=== PATIENT | female | born 1980 | race Caucasian/White ===

== ENCOUNTER 2016-05-07 16:50 | Emergency (ER) | payer OTHER ==
[~2016-05-07] VITALS: Ht 149.9 cm; Wt 58.1 kg
[2016-05-07 16:57] VITALS: BP 142/89; PULSE 97; RESP 16; TEMP 98.8; O2SAT 99
[2016-05-07] MEDS ORDERED: CLINDAMYCIN PHOS 600 MG/4 ML VIAL IM ONE (17:30)
[2016-05-07] MEDS ORDERED: BUPIVACAINE HCL PF 0.5% 10 ML VIAL INFIL ONE (17:30)
[2016-05-07] MEDS ORDERED: LIDOCAINE HCL 1% 50 ML VIAL INFIL ONE (17:30)
[2016-05-07] MEDS ORDERED: TETANUS/DIPHTHERIA TOXOID ADULT 0.5 ML VIAL IM ONE (18:00)
[2016-05-07] MEDS ORDERED: HYDR-3533 PO (18:51)
[2016-05-07] MEDS ORDERED: CLIN1CAP6 PO (18:51)
--- NOTE | 2016-05-07 18:51 | PD ---
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 She has 2 lacerations to the upper lip, through the vermilion border. This happened just prior to arrival. They did clean the wound some at the office. Describes copious bleeding that stopped with pressure. History Past Medical History Medical History: Denies Significant Hx Tetanus Vaccination: Unknown Social History Alcohol Use: No Tobacco Use: No Allergies-Medications (Allergen,Severity, Reaction): Coded Allergies: Penicillin (Verified Allergy, Severe, Anaphylaxis, 05/07/16) Reported Meds & Prescriptions Reported Meds & Active Scripts Active Lortab (Hydrocodone-Acetaminophen) 5-325 Mg Tab 1-2 Tab PO Q6H PRN Clindamycin (Clindamycin HCl) 300 Mg Cap 300 Mg PO Q6H 7 Days Review of Systems Except as stated in HPI: all other systems reviewed are Neg Physical Exam Narrative Gen.: Well-appearing 35-year-old woman, no acute distress HEENT: Patient has 2 lacerations to the upper lip and one to the lower chin. The 2 lacerations the upper lip parallel come on the right side of face. They' re both through the vermilion border. One is superficial, and his symptoms to his tissue, about 5-10 mm. The second one is about a centimeter and a half or so, goes all the way through the muscle of the lip and through the vermilion border. The one noted to chin is about a centimeters a half, and a small Y- shaped. No active bleeding. Data Data Last Documented VS Vital Signs Date Time Temp Pulse Resp B/P Pulse Ox O2 Delivery O2 Flow Rate FiO2 05/07/16 16:57 98.8 97 16 142/89 99 Orders Lidocaine 1% Inj (50 Ml) (Xylocaine 1% I (05/07/16 17:30) Bupivacaine Pf 0.5% Inj (Marcaine Pf 0.5 (05/07/16 17:30) Clindamycin Inj (Cleocin Inj) (05/07/16 17:30) Tetanus/Diphtheria Tox Adult (Tetanus/Di (05/07/16 18:00) [facility] Medical Decision Making Medical Screen Exam Complete: Yes Emergency Medical Condition: Yes Differential Diagnosis Facial laceration, infection, other Narrative Course Medical decision making This is a 35-year-old woman presents to the emergency department complaining of facial laceration. From a dog bite. Complex laceration through the musculature of the lip and through the vermilion border. No one is on-call for face. I did discuss with the plastic surgeon, Dr. Key, who is tied up in the operating room. Given this, I made decision to repair the laceration primarily at the bedside. Patient tolerated well. Procedures Procedure Narrative Infraorbital nerve block. Approximately 3 mL some accommodation of quarter percent Marcaine and 1% lidocaine were injected underneath the buccal fold angled toward the infraorbital foramen. Moderate but not perfect anesthesia resulted. Laceration repair: Complex laceration involving the upper right lip was repaired. Anesthesia was accomplished using an infraorbital nerve block. The vermilion border of both lacerations was tagged first. A buried 4-0 Vicryl was used to close the musculature of the lip. 6-0 Prolene was then used to scoliosis skin components all the lacerations, numbering approximately 10 sutures in total. 5-0 chromic gut was used to close the mucosal surface of the lacerations, 2 in total. Diagnosis Primary Impression: Dog bite of face Qualified Code: S01.85XA - Dog bite of face, initial encounter Additional Instructions: Return to the emergency department in 5-6 days for suture removal. Keep wound clean and dry. Do not wet for 24 hours. After 24 hours and clean the wound gently with soap and water. Gently clean wound twice daily with soap and water. Do not soak wound. No swimming, hot tubs, or allowing wound to get too wet. Apply antibiotic ointment to wound twice daily. Return to the emergency department for any worsening pain, swelling, redness, significant bleeding, or any other new or worsening symptoms. Take antibiotics as prescribed for Return to the emergency department for any new or worsening symptoms. Med/Other Pt SpecificInfo: Prescription(s) given Scripts Hydrocodone-Acetaminophen (Lortab)5-325 Mg Tab1-2 Tab PO Q6H PRN (PAIN) #12 TAB Prov:Demond Blanco MD 05/07/16 Clindamycin 300 Mg [id number] Mg PO Q6H 7 Days Prov:Demond Blanco MD 05/07/16 Disposition: 01 DISCHARGE HOME Condition: Stable Demond Blanco MD May 07, 2016 18:51
== END 2016-05-07 19:09 | disposition home or self-care (01) ==
LOC: PHEFT 16:50
DX: S01.511A Laceration without foreign body of lip, initial encounter (principal); S01.551A Open bite of lip, initial encounter; W54.0XXA Bitten by dog, initial encounter; Y93.9 Activity, unspecified; Y92.89 Other specified places as the place of occurrence of the external cause; Y99.0 Civilian activity done for income or pay; Z23 Encounter for immunization
CPT/HCPCS: 40650; 90471; 90714; 96372

== ENCOUNTER 2016-05-13 07:59 | Emergency (ER) | payer OTHER ==
[~2016-05-13] VITALS: Ht 149.9 cm; Wt 57.4 kg
[~2016-05-13 07:59] MED LIST: CLIN1CAP6 PO; HYDR-3533 PO
[2016-05-13 08:04] VITALS: BP 126/84; PULSE 94; RESP 16; TEMP 98.3; O2SAT 100
--- NOTE | 2016-05-13 08:41 | PD ---
HPI Chief Complaint: Wound/Suture/Staple Re-Check Time Seen by Provider: 08:26 Travel History International Travel<30 days: No Contact w/Intl Traveler<30days: No Traveled to known affect area: No History of Present Illness HPI 35-year-old female is here for suture removal. Patient had dog bite with laceration to the face that was repaired with sutures 7 days ago. Patient's here for suture removal. No other complaint. 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 wine or beer) Tobacco Use: No Substance Use: No Allergies-Medications (Allergen,Severity, Reaction): Coded Allergies: Penicillin (Verified Allergy, Severe, Anaphylaxis, 05/13/16) Reported Meds & Prescriptions Reported Meds & Active Scripts Active Lortab (Hydrocodone-Acetaminophen) 5-325 Mg Tab 1-2 Tab PO Q6H PRN Clindamycin (Clindamycin HCl) 300 Mg Cap 300 Mg PO Q6H 7 Days Review of Systems General / Constitutional: No: Fever Eyes: No: Visual changes HENT: No: Headaches Cardiovascular: No: Chest Pain or Discomfort Respiratory: No: Shortness of Breath Gastrointestinal: No: Abdominal Pain Genitourinary: No: Dysuria Musculoskeletal: No: Pain Skin: No Rash Neurologic: No: Weakness Psychiatric: No: Depression Endocrine: No: Polydipsia Hematologic/Lymphatic: No: Easy Bruising Physical Exam Narrative GENERAL: Well-nourished, well-developed patient. SKIN: Warm and dry. HEAD: Normocephalic. EYES: No scleral icterus. No injection or drainage. NECK: Supple, trachea midline. No JVD or lymphadenopathy. CARDIOVASCULAR: Regular rate and rhythm without murmurs, gallops, or rubs. RESPIRATORY: Breath sounds equal bilaterally. No accessory muscle use. GASTROINTESTINAL: Abdomen soft, non-tender, nondistended. MUSCULOSKELETAL: No cyanosis, or edema. BACK: Nontender without obvious deformity. No CVA tenderness. The wound is clean and dry. Sutures in place. Data Data Last Documented VS Vital Signs Date Time Temp Pulse Resp B/P Pulse Ox O2 Delivery O2 Flow Rate FiO2 1/10/17 08:09 90 16 05/13/16 08:04 98.3 126/84 100 MDM Medical Decision Making Medical Screen Exam Complete: Yes Emergency Medical Condition: Yes Differential Diagnosis Differential diagnosis including suture removal. Narrative Course 35-year-old female is here for suture removal. Procedures Procedure Narrative Suture removal with forceps and #11 scalpel. Diagnosis Primary Impression: Visit for suture removal Patient Instructions: General Instructions Additional Instructions: Polysporin ointment daily. Follow-up with local physician. Return as needed. Med/Other Pt SpecificInfo: No Change to Meds Disposition: 01 DISCHARGE HOME Condition: Stable Jun Nobles MD May 13, 2016 08:41
== END 2016-05-13 08:58 | disposition home or self-care (01) ==
LOC: PHEFT 07:59
DX: Z48.02 Encounter for removal of sutures (principal)
CPT/HCPCS: 99281

== ENCOUNTER 2017-10-01 19:43 | Inpatient (IN) | payer OTHER ==
[~2017-10-01] VITALS: Ht 149.9 cm; Wt 70.7 kg
[~2017-10-01 19:43] MED LIST changes: -CLIN1CAP6 PO; +CLIN300C5 PO
[2017-10-01] MEDS ORDERED: PRENTAB7 (20:17)
[2017-10-01] MEDS ORDERED: VITAMIN B6 PF (20:17)
[2017-10-01] MEDS ORDERED: ZANT150T2 PO (20:17)
[2017-10-01] MEDS ORDERED: LACTATED RINGER'S 1000 ML INJ 1,000 ML IV SCH (21:15)
[2017-10-01] MEDS: LACTATED RINGER'S 1000 ML IV SCH (21:15)
[2017-10-01] MEDS ORDERED: NS 500 ML BOLUS IV PRN (21:15)
[2017-10-01] MEDS ORDERED: CITRIC ACID-SODIUM CITRATE LIQ 30 ML UDC PO SCH (21:15)
[2017-10-01] MEDS ORDERED: LIDOCAINE HCL 1% 50 ML VIAL INFIL PRN (21:15)
[2017-10-01] MEDS ORDERED: NS 1000 ML IV PRN (21:15)
[2017-10-01] MEDS ORDERED: MINERAL OIL 10 ML VIAL TOPICAL PRN (21:15)
[2017-10-01] MEDS ORDERED: ONDANSETRON HCL 4 MG/2 ML VIAL IV PUSH PRN (21:15)
[2017-10-01] MEDS ORDERED: LACTATED RINGER'S 1000 ML BOLUS IV PRN (21:15)
[2017-10-01] MEDS ORDERED: LIDOCAINE HCL 1% 50 ML VIAL I-DERMAL PRN (21:15)
[2017-10-01] MEDS ORDERED: OXYTOCIN 30 UNITS 500ML PREMIX IV ONE (21:15)
[2017-10-01] MEDS ORDERED: DINOPROSTONE 10 MG INSERT-LEAVE FOR 12 HOURS VAGINAL ONE (21:15)
[2017-10-01] MEDS ORDERED: NS 1000 ML OTHER PRN (21:15)
[2017-10-01] MEDS ORDERED: ONDANSETRON ODT 4 MG TAB PO PRN (22:00)
[2017-10-01 22:03] LABS: AUTOMATED NEUTROPHIL # 4.9 TH/MM3 (1.8-7.7); BASOPHIL % 0.2 % (0.0-2.0); EOSINOPHIL # 0.1 TH/MM3 (0-0.4); HEMATOCRIT 31.7 % (35.0-46.0); HEMOGLOBIN 10.6 GM/DL (11.6-15.3); LYMPHOCYTE # 1.7 TH/MM3 (1.0-4.8); MEAN CELL VOLUME 81.6 FL (80.0-100.0); MEAN CORPUSCULAR HEMOGLOBIN 27.2 PG (27.0-34.0); MEAN CORPUSCULAR HGB CONC 33.4 % (32.0-36.0); MEAN PLATELET VOLUME 9.9 FL (7.0-11.0); MONO % 13.1 % (0.0-8.0); NEUT % 63.7 % (16.0-70.0); PLATELET COUNT 179 TH/MM3 (150-450); RED BLOOD COUNT 3.89 MIL/MM3 (4.00-5.30); RED CELL DISTRIBUTION WIDTH 17.8 % (11.6-17.2); WHITE BLOOD COUNT 7.7 TH/MM3 (4.0-11.0)
[2017-10-01 22:06] LABS: AMORPHOUS SEDIMENT, URINE RARE; BACTERIA, URINE FEW /hpf; BILIRUBIN, URINE NEG (NEG); BLOOD, URINE NEG (NEG); GLUCOSE,URINE NEG (NEG); KETONE, URINE NEG (NEG); MUCUS URINE FEW /lpf (OCC); NITRITE,URINE NEG (NEG); SQUAMOUS EPITHELIAL CELL URINE 3 /hpf (0-5); URINE COLOR YELLOW (YELLW/STRAW); URINE LEUKOCYTE ESTERASE SMALL (NEG)
[2017-10-02] MEDS: LACTATED RINGER'S 1000 ML IV SCH (03:45)
[2017-10-02] MEDS ORDERED: fentaNYL 2MCG-BUPIV 0.125% INJ 150 ML EPIDURAL ONE (04:35)
[2017-10-02] MEDS ORDERED: LIDOCAINE HCL 1% PF 5 ML AMPULE ONE ×2 (04:49→15:31)
[2017-10-02] MEDS ORDERED: LIDOCAINE 1.5%/EPINEPHrine 1:200,000 PF 5 ML AMP ONE ×2 (04:49→10:35)
[2017-10-02] MEDS: ePHEDrine/NS 25 MG/5 ML SYRINGE ONE (05:16)
[2017-10-02] MEDS: ePHEDrine/NS 25 MG/5 ML SYRINGE IV PUSH PRN ×2 (05:26→05:38)
[2017-10-02] MEDS ORDERED: fentaNYL 2MCG-BUPIV 0.125% 150 ML EPIDURAL PRN (05:30)
[2017-10-02] MEDS ORDERED: DO NOT ADMINISTER ANTICOAGULANTS PRN (05:30)
[2017-10-02] MEDS ORDERED: NO SYSTEM NARCOTICS PRN (05:30)
--- NOTE | 2017-10-02 07:25 | MH ---
cc: Katia Wild MD DATE OF ADMISSION: 10/01/2017 REASON FOR ADMISSION: Patient is being admitted today for induction of labor due to oligohydramnios. HISTORY OF PRESENT ILLNESS: She is [id number], 1, para 0 intrauterine at 40 weeks with an DEYA of 4.8 cm. care has been with [place] [employer]. She had a negative, group B strep. Normal GCT. PAST OBSTETRIC HISTORY: She is primigravid. PAST GYNECOLOGIC HISTORY: She had cryo in 2001. PAST MEDICAL HISTORY: She denies hypertension, diabetes, or asthma. PAST SURGICAL HISTORY: Significant for cryotherapy and left hand surgery, a tumor was removed in 2013. SOCIAL HISTORY: She denies toxic habits. MEDICATIONS: She takes vitamins and iron. ALLERGIES: PENICILLIN CAUSES ITCHING AND TONGUE SWELLING. PHYSICAL EXAM: VITAL SIGNS: Stable. She is afebrile. Blood pressure is 120/62. She is 156 pounds. HEAD, HEART, CHEST, LUNG: Exams are within normal limits. ABDOMEN: Soft, nontender, gravid. PELVIC: The cervix is soft and closed. EXTREMITIES: No edema, cyanosis or clubbing. ASSESSMENT AND PLAN: She is [id number], 1, para 0 intrauterine at 40 weeks with oligohydramnios. She will be admitted for cervical ripening with Cervidil. Risks, benefits, and alternatives have been explained to her. All of her questions have been answered. MD VANITA Chapman/LINDA , 09:29 AM , 09:42 AM
--- NOTE | 2017-10-02 08:55 | PD.LABORPN ---
Subjective Subjective pt resting with epidural Objective Vital Signs Vital Signs Date Time Temp Pulse Resp B/P (MAP) Pulse Ox O2 Delivery O2 Flow Rate FiO2 10/02/17 05:55 14 10/02/17 01:40 16 Objective Pelvic Exam: Cervix: [-] Dilatation: [-] 1 Effacement: [-] 90 Station: [-] -1 Presentation: [-] Membranes: [intact or ruptured] arom clear 0730 Uterine Contractions: [-] yes FHT's: Category: [-] 1 Baseline: [-] Reactive: [-] R Variability: [-] Decels: [-] Weeks Gestation: 40 Gest Age Assessed Date: Oct 02, 2017 Gest Age Assessed Time: 08:54 Pt started active labor?: Yes Active labor start date: Oct 02, 2017 Active labor start time: 08:54 Medical induction of labor?: Yes Medical induction start date: October 01, 2017 Medical induction start time: 21:00 Artificial rupture of membrane: Yes Artificial ROM date: Oct 02, 2017 Artifical ROM time: 07:30 Assessment/Plan Problem List: (1) state, incidental ICD Codes: Z33.1 - state, incidental (2) Oligohydramnios antepartum ICD Codes: O41.00X0 - Oligohydramnios, unspecified trimester, not applicable or unspecified Assessment and Plan 40 wks, oligo, arom , pit anticipate Katia Wild MD Oct 02, 2017 08:55
[2017-10-02] MEDS ORDERED: OXYTOCIN 30 UNITS-500ML PREMIX 500 ML IV PRN (09:00)
[2017-10-02] MEDS ORDERED: BUPIVACAINE HCL PF 0.25% 10 ML VIAL ONE (09:49)
[2017-10-02] MEDS ORDERED: DEXAMETHASONE SOD PHOS 4 MG/ML VIAL IV ONE (12:00)
[2017-10-02] MEDS ORDERED: ONDANSETRON HCL 4 MG/2 ML VIAL IV ONE (12:00)
[2017-10-02] MEDS ORDERED: SODIUM CHLOR 0.9% 250 ML INJ 250 ML IV ONE (12:00)
[2017-10-02] MEDS ORDERED: LIDOCAINE 2%/EPINEPHrine PF 1:200,000 20ML SDV OTHER ONE (12:00)
[2017-10-02] MEDS ORDERED: OXYTOCIN 10 UNIT/ML AMP IV ONE (12:00)
[2017-10-02] MEDS ORDERED: PHENYLEPH/NS 1000 MCG/10 ML SYR IV ONE (12:00)
[2017-10-02] MEDS ORDERED: LACTATED RINGER'S 1000 ML INJ 1,000 ML IV ONE (12:00)
[2017-10-02] MEDS ORDERED: ACETAMINOPHEN 1000 MG/100 ML 100 ML IV ONE (19:17)
[2017-10-02] MEDS ORDERED: EPIDURAL-NO SYSTEMIC NARCOTICS PRN (19:25)
[2017-10-02] MEDS ORDERED: EPIDURAL-DO NOT ADMINISTER ANTICOAGULANTS PRN (19:25)
[2017-10-02] MEDS ORDERED: EPIDURAL-DIPHENHYDRAMINE HCL 50 MG/ML VIAL IV PUSH PRN (19:25)
[2017-10-02] MEDS ORDERED: EPIDURAL-NALOXONE HCL 0.4 MG/ML AMP IV PUSH PRN (19:25)
[2017-10-02] MEDS ORDERED: EPIDURAL-DIPHENHYDRAMINE HCL 50 MG CAP PO PRN (19:25)
[2017-10-02] MEDS ORDERED: CLINDAMYCIN PHOS 600 MG/4 ML VIAL ONE (19:33)
[2017-10-02] MEDS ORDERED: CLINDAMYCIN INJ 600 MG in SODIUM CHLORIDE 0.9% INJ 100 ML IV SCH (20:00)
[2017-10-02] MEDS ORDERED: ACETAMINOPHEN 325 MG TAB PO PRN (20:30)
[2017-10-02] MEDS ORDERED: ZOLPIDEM TARTRATE 5 MG TAB PO PRN (20:30)
[2017-10-02] MEDS ORDERED: oxyCODONE/ACETAMINOPHEN 5 MG/325 MG TAB PO PRN (20:30)
[2017-10-02] MEDS ORDERED: CITRIC ACID-SODIUM CITRATE LIQ 30 ML UDC PO SCH (20:30)
[2017-10-02] MEDS ORDERED: SODIUM CHLORIDE 0.9% FLUSH 10 ML FLUSH IV FLUSH PRN (20:30)
[2017-10-02] MEDS ORDERED: OXYTOCIN 30 UNITS-500ML PREMIX 500 ML IV ONE (20:30)
[2017-10-02] MEDS ORDERED: SODIUM CHLORIDE 0.9% FLUSH 10 ML FLUSH IV FLUSH SCH (21:00)
[2017-10-02] MEDS ORDERED: ONDANSETRON ODT 4 MG TAB PO PRN (21:00)
--- NOTE | 2017-10-02 21:10 | MP ---
cc: Katia Wild MD, Cynthia K MD DATE OF OPERATION: 10/02/2017 PREOPERATIVE DIAGNOSES: Intrauterine at 40 weeks, oligohydramnios arrest of dilatation, arrest of descent. POSTOPERATIVE DIAGNOSES: Intrauterine at 40 weeks, oligohydramnios arrest of dilatation, arrest of descent. PROCEDURE PERFORMED: Primary lower segment transverse section via Pfannenstiel skin incision. SURGEON: Katia Wild MD ANESTHESIA: Epidural. FLUIDS: 1500 mL crystalloid. ESTIMATED BLOOD LOSS: 900 mL URINE OUTPUT: 100 mL clear yellow at the end of the procedure. FINDINGS: Live female was delivered, Apgars 8 at 1 minute and 9 at 5 minutes. weight was 7 pounds 2 ounces. PROCEDURE IN DETAIL: The patient was taken to the operating room, where epidural anesthesia was found to be adequate. She was then prepped and draped in the normal sterile fashion in the dorsal supine position with a leftward tilt. A Pfannenstiel skin incision was made with a scalpel and carried down to the underlying layer of fascia. The fascia was nicked in the midline. The incision was extended laterally with curved Casper scissors. Attention was turned to the inferior aspect of the incision, which was grasped with Jennifer clamps, elevated, and the rectus muscles dissected off sharply. Attention was turned to the superior aspect of the incision, which was grasped with Jennifer clamps, elevated, and the rectus muscles dissected off sharply. The rectus muscles were in the midline. The peritoneum was identified, grasped between two Lyly clamps, elevated, and entered sharply with Metzenbaum scissors. This incision was extended superiorly and inferiorly with good visualization of the bladder. The bladder blade was inserted. The vesicouterine peritoneum was identified, grasped with pickups, entered sharply with Metzenbaum scissors. This incision was extended laterally and the bladder flap created digitally. The lower uterine segment was incised in a transverse fashion with the scalpel. This incision was extended laterally with scissors. The vertex was delivered. The oral and nasopharynx were bulb suctioned with the syringe. The shoulders were delivered atraumatically. The cord was clamped x2 and cut after waiting 45 seconds. The was handed off to the waiting nurse. The placenta was delivered manually and sent for donation. The uterus was cleared of all clots and debris. The uterine incision was repaired in 2 layers with #1 Vicryl. The bladder flap was repaired with a running suture of 3-0 chromic. Hemostasis was assured. The gutters were cleared of all clots and debris. The fascia was reapproximated in a running fashion with 0 Vicryl. The skin was closed with sofie. A pressure dressing was applied. The sponge, lap, needle and instrument counts were correct x3. The patient was transferred to recovery room in stable condition. MD VANITA Chapman/ , 08:22 PM , 09:09 PM
[2017-10-02 21:55] VITALS: BP 113/64; PULSE 111; RESP 19; TEMP 98.6
[2017-10-02] MEDS: IBUPROFEN 600 MG TAB PO PRN (23:42)
[2017-10-03 00:01] VITALS: BP 128/72; PULSE 100; RESP 19; TEMP 98.1
[2017-10-03] MEDS ORDERED: LACTATED RINGER'S 1000 ML INJ 1,000 ML IV SCH (01:18)
[2017-10-03] MEDS ORDERED: OXYTOCIN 30 UNITS-500ML PREMIX 500 ML IV PRN (01:30)
[2017-10-03 05:35] LABS: AUTOMATED NEUTROPHIL # 13.1 TH/MM3 (1.8-7.7); BASOPHIL % 0.1 % (0.0-2.0); LYMPH % 5.8 % (9.0-44.0); LYMPHOCYTE # 0.9 TH/MM3 (1.0-4.8); MEAN CELL VOLUME 81.8 FL (80.0-100.0); MEAN CORPUSCULAR HEMOGLOBIN 27.3 PG (27.0-34.0); MEAN CORPUSCULAR HGB CONC 33.4 % (32.0-36.0); MONO % 9.2 % (0.0-8.0); MONOCYTE # 1.4 TH/MM3 (0-0.9); NEUT % 84.9 % (16.0-70.0); PLATELET COUNT 137 TH/MM3 (150-450); RED BLOOD COUNT 2.36 MIL/MM3 (4.00-5.30); RED CELL DISTRIBUTION WIDTH 18.5 % (11.6-17.2); WHITE BLOOD COUNT 15.4 TH/MM3 (4.0-11.0)
[2017-10-03 06:06] LABS: HEMATOCRIT 19.3 % (35.0-46.0); HEMOGLOBIN 6.4 GM/DL (11.6-15.3)
[2017-10-03 06:20] VITALS: BP 115/69; PULSE 103; RESP 17; TEMP 98.2
--- NOTE | 2017-10-03 09:14 | HHI.OB ---
Subjective Post Operative Day: 1 Remarks no dizziness when ambulating, UO good, will given IV venofer Objective Vitals/I&O Vital Signs Date Time Temp Pulse Resp B/P (MAP) Pulse Ox O2 Delivery O2 Flow Rate FiO2 10/03/17 06:20 98.2 103 17 115/69 (84) 10/03/17 00:01 98.1 100 19 128/72 (90) 10/02/17 21:55 98.6 111 19 113/64 (80) Result Diagram: 10/03/17 0525 Objective Remarks GENERAL: Well-nourished, well-developed patient. CARDIOVASCULAR: Regular rate and rhythm without murmurs, gallops, or rubs. RESPIRATORY: Breath sounds equal bilaterally. No accessory muscle use. ABDOMEN/GI: Abdomen soft, non-tender, bowel sounds present. Incision: dressing Clean, dry and intact. Fundus: Firm, non-tender at umbilicus. GENITOURINARY: Light to moderate bleeding. EXTREMITIES: No cyanosis or edema, non-tender, without signs of DVT. Medications and IVs Current Medications Medications (Trade) Dose Ordered Sig/Lena Route Start Time Stop Time Status Last Admin Lactated Ringer's 1,000 ml @ 100 mls/hr Q10H IV 10/03/17 01:18 10/03/17 21:17 Oxytocin 500 ml @ 100 mls/hr UNSCH X1 PRN IV 10/03/17 01:30 10/04/17 01:29 (NS Flush) 2 ml BID IV FLUSH 10/02/17 21:00 (NS Flush) 2 ml UNSCH PRN IV FLUSH 10/02/17 20:30 (Mylicon Chew) 80 mg QID PRN PO 10/02/17 20:30 (Tylenol) 650 mg Q6H PRN PO 10/02/17 20:30 (Motrin) 600 mg Q6H PRN PO 10/02/17 20:30 10/02/17 23:42 (Percocet 5-325 Mg) 1 tab Q4H PRN PO 10/02/17 20:30 (Percocet 5-325 Mg) 2 tab Q4H PRN PO 10/02/17 20:30 (Ceci-Colace) 2 tab Q12H PRN PO 10/02/17 20:30 (Ambien) 5 mg HS PRN PO 10/02/17 20:30 (M-M-R Ii Inj) 0.5 ml ONCE ONCE SQ 10/03/17 16:00 10/03/17 16:01 (Boostrix Inj) 0.5 ml ONCE ONCE IM 10/03/17 16:00 10/03/17 16:01 (Zofran Odt) 4 mg Q6H PRN PO 10/02/17 21:00 ([facility] Nursing Information) NO SYSTEMIC NARCOTICS TO BE GIVEN FO... UNSCH PRN .XX 10/02/17 19:25 10/03/17 19:24 (Narcan Inj) 0.4 mg UNSCH PRN IV PUSH 10/02/17 19:25 10/03/17 19:24 (Benadryl Inj) 25 mg Q6H PRN IV PUSH 10/02/17 19:25 10/03/17 19:24 (Benadryl) 50 mg Q6H PRN PO 10/02/17 19:25 10/03/17 19:24 ([facility] Nursing Information) ALL NURSING DEPARTMENTS UNSCH PRN .XX 10/02/17 19:25 10/03/17 19:24 Assessment/Plan Problem List: (1) state, incidental ICD Codes: Z33.1 - state, incidental (2) Oligohydramnios antepartum ICD Codes: O41.00X0 - Oligohydramnios, unspecified trimester, not applicable or unspecified (3) delivery delivered ICD Codes: O82 - Encounter for delivery without indication Assessment and Plan POD #1 s/p LSTC for arrest of dilatation, descent IV venofer, PRBC if symptomatic Discharge Planning routine Attending Attestation pt seen by Katia Delcid MD Oct 03, 2017 09:14
[2017-10-03] MEDS: SIMETHICONE 80 MG CHEWABLE TAB PO PRN ×2 (10:42→19:18)
[2017-10-03] MEDS: oxyCODONE/ACETAMINOPHEN 5 MG/325 MG TAB PO PRN ×2 (10:42→14:50)
[2017-10-03] MEDS: IBUPROFEN 600 MG TAB PO PRN ×2 (10:42→19:17)
[2017-10-03] MEDS: DOCUSATE SODIUM 50 MG/SENNA 8.6 MG TAB PO PRN (10:42)
[2017-10-03] MEDS: IRON SUCROSE INJ 100 MG in SODIUM CHLORIDE 0.9% INJ 100 ML IV SCH (10:42)
[2017-10-03] MEDS ORDERED: DIPHTH/TETANUS/ACEL PERTUSSIS (BOOSTER) 0.5 ML VIAL/PFS IM ONE (16:00)
[2017-10-03] MEDS ORDERED: MEASLES, MUMPS, RUBELLA VACCINE 0.5 ML VIAL SQ ONE (16:00)
--- NOTE | 2017-10-03 19:46 | HHI.DCPOC ---
Discharge Care Plan Your Health Problems Are: Pelvic pain Report Symptoms to Your Doctor -Temperature above 100.5 degrees -Redness, of incision or excessive or foul smelling drainage -Unusual pain or calf pain -Increased vaginal bleeding -Painful or difficulty urinating -Feelings of extreme sadness or anxiety after 2 weeks Goals to Promote Your Health * To prevent worsening of your condition and complications * To maintain your health at the optimal level Directions to Meet Your Goals Take your medications as prescribed Follow your dietary instruction Follow activity as directed Ensure plenty of rest for recovery Drink fluids for hydration Keep your appointments as scheduled Take your immunizations and boosters as scheduled If your symptoms worsen call your PCP, if no PCP go to Urgent Care Center or Emergency Room Smoking is Dangerous to Your Health. Avoid second hand smoke Call the 24-hour crisis hotline for domestic abuse at Katia Wild MD Oct 03, 2017 19:46
[2017-10-04] MEDS: IBUPROFEN 600 MG TAB PO PRN ×3 (02:42→16:50)
[2017-10-04] MEDS: SIMETHICONE 80 MG CHEWABLE TAB PO PRN ×2 (02:42→09:38)
[2017-10-04] MEDS: oxyCODONE/ACETAMINOPHEN 5 MG/325 MG TAB PO PRN ×3 (02:43→16:51)
[2017-10-04 08:00] VITALS: BP 121/74; PULSE 105; RESP 18; TEMP 98.5; O2SAT 99
--- NOTE | 2017-10-04 08:47 | HHI.OB ---
Subjective Post Operative Day: 2 Remarks feels well, ambulated yesterday w/o difficulty Objective Vitals/I&O vss afeb Result Diagram: 10/03/17 0525 Objective Remarks GENERAL: Well-nourished, well-developed patient. CARDIOVASCULAR: Regular rate and rhythm without murmurs, gallops, or rubs. RESPIRATORY: Breath sounds equal bilaterally. No accessory muscle use. ABDOMEN/GI: Abdomen soft, non-tender, bowel sounds present. Incision: dressing Clean, dry and intact. Fundus: Firm, non-tender at umbilicus. GENITOURINARY: Light to moderate bleeding. EXTREMITIES: No cyanosis or edema, non-tender, without signs of DVT. Medications and IVs Current Medications Medications (Trade) Dose Ordered Sig/Lena Route Start Time Stop Time Status Last Admin (NS Flush) 2 ml BID IV FLUSH 10/02/17 21:00 (NS Flush) 2 ml UNSCH PRN IV FLUSH 10/02/17 20:30 (Mylicon Chew) 80 mg QID PRN PO 10/02/17 20:30 10/04/17 02:42 (Tylenol) 650 mg Q6H PRN PO 10/02/17 20:30 (Motrin) 600 mg Q6H PRN PO 10/02/17 20:30 10/04/17 02:42 (Percocet 5-325 Mg) 1 tab Q4H PRN PO 10/02/17 20:30 10/04/17 02:43 (Percocet 5-325 Mg) 2 tab Q4H PRN PO 10/02/17 20:30 10/03/17 19:18 (Ceci-Colace) 2 tab Q12H PRN PO 10/02/17 20:30 10/03/17 10:42 (Ambien) 5 mg HS PRN PO 10/02/17 20:30 (Zofran Odt) 4 mg Q6H PRN PO 10/02/17 21:00 Iron Sucrose 100 mg/Sodium Chloride 105 ml @ 105 mls/hr DAILY IV 10/03/17 11:00 10/05/17 09:59 10/03/17 10:42 Assessment/Plan Problem List: (1) state, incidental ICD Codes: Z33.1 - state, incidental (2) Oligohydramnios antepartum ICD Codes: O41.00X0 - Oligohydramnios, unspecified trimester, not applicable or unspecified (3) delivery delivered ICD Codes: O82 - Encounter for delivery without indication Assessment and Plan POD #2 s/p LSTC for arrest of dilatation, descent IV venofer, PRBC if symptomatic remove sofie in am Discharge Planning routine Attending Attestation pt seen by Katia Delcid MD Oct 04, 2017 08:47
[2017-10-04] MEDS: IRON SUCROSE INJ 100 MG in SODIUM CHLORIDE 0.9% INJ 100 ML IV SCH (09:38)
[2017-10-04] MEDS: DOCUSATE SODIUM 50 MG/SENNA 8.6 MG TAB PO PRN (09:39)
[2017-10-05] MEDS: oxyCODONE/ACETAMINOPHEN 5 MG/325 MG TAB PO PRN ×3 (00:47→19:15)
[2017-10-05] MEDS: IBUPROFEN 600 MG TAB PO PRN ×3 (00:48→19:15)
[2017-10-05 05:49] LABS: MEAN CELL VOLUME 83.3 FL (80.0-100.0); MEAN CORPUSCULAR HEMOGLOBIN 27.7 PG (27.0-34.0); MEAN CORPUSCULAR HGB CONC 33.2 % (32.0-36.0); MEAN PLATELET VOLUME 8.5 FL (7.0-11.0); PLATELET COUNT 151 TH/MM3 (150-450); RED BLOOD COUNT 2.13 MIL/MM3 (4.00-5.30); RED CELL DISTRIBUTION WIDTH 18.3 % (11.6-17.2); WHITE BLOOD COUNT 8.8 TH/MM3 (4.0-11.0)
[2017-10-05 05:52] LABS: HEMOGLOBIN 5.9 GM/DL (11.6-15.3)
[2017-10-05 05:53] LABS: HEMATOCRIT 17.7 % (35.0-46.0)
[2017-10-05 08:30] VITALS: BP 139/79; PULSE 114; RESP 20; TEMP 98.3; O2SAT 99
--- NOTE | 2017-10-05 08:39 | HHI.OB ---
Subjective Post Operative Day: 3 Remarks s/p primary LTCD for arrest of labor, induced for oligo; on POD#2 found to be anemic, IV venofer given but this AM H/H even lower; pt symptomatic, transfusion ordered, not yet started when I saw pt Objective Result Diagram: 10/05/17 0537 Objective Remarks GENERAL: Well-nourished, well-developed patient. CARDIOVASCULAR: Regular rate and rhythm without murmurs, gallops, or rubs. RESPIRATORY: Breath sounds equal bilaterally. No accessory muscle use. ABDOMEN/GI: Abdomen soft, non-tender, bowel sounds present. Incision: Clean, dry and intact. sofie in place Fundus: Firm, non-tender at umbilicus. GENITOURINARY: Light bleeding. EXTREMITIES: No cyanosis or edema, non-tender, without signs of DVT. Medications and IVs Current Medications Medications (Trade) Dose Ordered Sig/Lena Route Start Time Stop Time Status Last Admin (NS Flush) 2 ml BID IV FLUSH 10/02/17 21:00 (NS Flush) 2 ml UNSCH PRN IV FLUSH 10/02/17 20:30 10/04/17 12:27 (Mylicon Chew) 80 mg QID PRN PO 10/02/17 20:30 10/04/17 09:38 (Tylenol) 650 mg Q6H PRN PO 10/02/17 20:30 (Motrin) 600 mg Q6H PRN PO 10/02/17 20:30 10/05/17 00:48 (Percocet 5-325 Mg) 1 tab Q4H PRN PO 10/02/17 20:30 10/05/17 00:47 (Percocet 5-325 Mg) 2 tab Q4H PRN PO 10/02/17 20:30 10/03/17 19:18 (Ceci-Colace) 2 tab Q12H PRN PO 10/02/17 20:30 10/04/17 09:39 (Ambien) 5 mg HS PRN PO 10/02/17 20:30 (Zofran Odt) 4 mg Q6H PRN PO 10/02/17 21:00 Iron Sucrose 100 mg/Sodium Chloride 105 ml @ 105 mls/hr DAILY IV 10/03/17 11:00 10/05/17 09:59 10/04/17 09:38 Assessment/Plan Problem List: (1) Oligohydramnios antepartum ICD Codes: O41.00X0 - Oligohydramnios, unspecified trimester, not applicable or unspecified Status: Acute Qualifiers: Qualified Codes: O41.00X0 - Oligohydramnios, unspecified trimester, not applicable or unspecified (2) delivery delivered ICD Codes: O82 - Encounter for delivery without indication Status: Acute (3) Postoperative anemia due to acute blood loss ICD Codes: D62 - Acute posthemorrhagic anemia Status: Acute Assessment and Plan POD #3 s/p LSTC for arrest of dilatation, descent s/p IV venofer yesterday with AM H/H lower, critical low 5.9, 2 units PRBC ordered; pt mildly symptomatic, able to ambulate but dizzy; d/w pt will plan H/ H check 4h post-transfusion then again tmrw AM to ensure stability, not yet meeting discharge criteria; plan to remove sofie in am Discharge Planning not meeting criteria Julia Lindsay MD Oct 05, 2017 08:38
[2017-10-05 08:55] VITALS: BP 137/80; PULSE 109; RESP 20; TEMP 98.4; O2SAT 99
[2017-10-05 11:55] VITALS: BP 121/84; PULSE 96; RESP 20; TEMP 98.3; O2SAT 99
[2017-10-05 12:45] VITALS: BP 136/80; PULSE 98; RESP 18; TEMP 98.2; O2SAT 99
[2017-10-05] MEDS ORDERED: PYRI25TA PO (16:00)
[2017-10-05] MEDS: DOCUSATE SODIUM 50 MG/SENNA 8.6 MG TAB PO PRN (19:15)
[2017-10-05 22:05] LABS: AUTOMATED NEUTROPHIL # 6.3 TH/MM3 (1.8-7.7); BASOPHIL % 0.2 % (0.0-2.0); EOSINOPHIL # 0.1 TH/MM3 (0-0.4); EOSINOPHIL % 1.3 % (0.0-4.0); HEMATOCRIT 24.8 % (35.0-46.0); HEMOGLOBIN 8.5 GM/DL (11.6-15.3); LYMPHOCYTE # 1.5 TH/MM3 (1.0-4.8); MEAN CELL VOLUME 82.6 FL (80.0-100.0); MEAN CORPUSCULAR HEMOGLOBIN 28.4 PG (27.0-34.0); MEAN CORPUSCULAR HGB CONC 34.3 % (32.0-36.0); MEAN PLATELET VOLUME 8.1 FL (7.0-11.0); MONO % 9.8 % (0.0-8.0); MONOCYTE # 0.9 TH/MM3 (0-0.9); NEUT % 71.7 % (16.0-70.0); PLATELET COUNT 157 TH/MM3 (150-450); RED CELL DISTRIBUTION WIDTH 16.8 % (11.6-17.2); WHITE BLOOD COUNT 8.8 TH/MM3 (4.0-11.0)
[2017-10-05 22:39] LABS: BANDS 6 % (0-6); CORRECTED NUCLEATED RBC 1 /100 WBC (0-0); LYMPHOCYTES 15 % (9-44); METAMYELOCYTES 4 % (0-1); MONOCYTES 10 % (0-8); MYELOCYTES 2 % (0-0); NEUTROPHIL # MANUAL DIFF 6.6 TH/MM3 (1.8-7.7); NUCLEATED RED BLOOD CELL 1 (0-0); POLYS (SEG NEUTROPHILS) 63 % (16-70)
[2017-10-05 22:40] LABS: TOXIC GRANULATION 1+ (NORMAL)
[2017-10-06 06:02] LABS: BASOPHIL % 0.5 % (0.0-2.0); EOSINOPHIL # 0.1 TH/MM3 (0-0.4); EOSINOPHIL % 1.6 % (0.0-4.0); HEMOGLOBIN 8.9 GM/DL (11.6-15.3); LYMPH % 16.1 % (9.0-44.0); LYMPHOCYTE # 1.3 TH/MM3 (1.0-4.8); MEAN CELL VOLUME 82.6 FL (80.0-100.0); MEAN CORPUSCULAR HEMOGLOBIN 28.1 PG (27.0-34.0); MEAN CORPUSCULAR HGB CONC 34.1 % (32.0-36.0); MEAN PLATELET VOLUME 8.8 FL (7.0-11.0); MONO % 10.1 % (0.0-8.0); MONOCYTE # 0.8 TH/MM3 (0-0.9); NEUT % 71.7 % (16.0-70.0); PLATELET COUNT 171 TH/MM3 (150-450); RED BLOOD COUNT 3.15 MIL/MM3 (4.00-5.30); RED CELL DISTRIBUTION WIDTH 16.6 % (11.6-17.2); WHITE BLOOD COUNT 8.4 TH/MM3 (4.0-11.0)
[2017-10-06 08:38] LABS: BANDS 8 % (0-6); CORRECTED NUCLEATED RBC 3 /100 WBC (0-0); LYMPHOCYTES 13 % (9-44); MONOCYTES 7 % (0-8); MYELOCYTES 1 % (0-0); NEUTROPHIL # MANUAL DIFF 6.6 TH/MM3 (1.8-7.7); NUCLEATED RED BLOOD CELL 3 (0-0); POLYS (SEG NEUTROPHILS) 70 % (16-70)
[2017-10-06 08:40] LABS: OVALOCYTES 1+ (NORMAL); TOXIC GRANULATION 1+ (NORMAL)
--- NOTE | 2017-10-06 08:48 | HHI.OB ---
Subjective Post Operative Day: 4 Remarks feeling better with 2 units transfused Hgb 8.9 nursing sofie now out Objective Vitals/I&O Vital Signs Date Time Temp Pulse Resp B/P (MAP) Pulse Ox O2 Delivery O2 Flow Rate FiO2 10/05/17 12:45 98.2 98 18 136/80 99 10/05/17 11:55 98.3 96 20 121/84 99 10/05/17 08:55 98.4 109 20 137/80 99 Result Diagram: 10/06/17 0522 Objective Remarks GENERAL: Well-nourished, well-developed patient. CARDIOVASCULAR: Regular rate and rhythm without murmurs, gallops, or rubs. RESPIRATORY: Breath sounds equal bilaterally. No accessory muscle use. ABDOMEN/GI: Abdomen soft, non-tender, bowel sounds present. Incision: Clean, dry and intact. sofie in place Fundus: Firm, non-tender at umbilicus. GENITOURINARY: Light bleeding. EXTREMITIES: No cyanosis or edema, non-tender, without signs of DVT. Medications and IVs Current Medications Medications (Trade) Dose Ordered Sig/Lena Route Start Time Stop Time Status Last Admin (NS Flush) 2 ml BID IV FLUSH 10/02/17 21:00 (NS Flush) 2 ml UNSCH PRN IV FLUSH 10/02/17 20:30 10/04/17 12:27 (Mylicon Chew) 80 mg QID PRN PO 10/02/17 20:30 10/04/17 09:38 (Tylenol) 650 mg Q6H PRN PO 10/02/17 20:30 (Motrin) 600 mg Q6H PRN PO 10/02/17 20:30 10/05/17 19:15 (Percocet 5-325 Mg) 1 tab Q4H PRN PO 10/02/17 20:30 10/05/17 19:15 (Percocet 5-325 Mg) 2 tab Q4H PRN PO 10/02/17 20:30 10/03/17 19:18 (Ceci-Colace) 2 tab Q12H PRN PO 10/02/17 20:30 10/05/17 19:15 (Ambien) 5 mg HS PRN PO 10/02/17 20:30 (Zofran Odt) 4 mg Q6H PRN PO 10/02/17 21:00 Assessment/Plan Problem List: (1) Oligohydramnios antepartum ICD Codes: O41.00X0 - Oligohydramnios, unspecified trimester, not applicable or unspecified Status: Acute Qualifiers: Qualified Codes: O41.00X0 - Oligohydramnios, unspecified trimester, not applicable or unspecified (2) delivery delivered ICD Codes: O82 - Encounter for delivery without indication Status: Acute (3) Postoperative anemia due to acute blood loss ICD Codes: D62 - Acute posthemorrhagic anemia Status: Acute Assessment and Plan POD #3 s/p LSTC for arrest of dilatation, descent s/p IV venofer yesterday with AM H/H lower, critical low 5.9, 2 units PRBC ordered; pt mildly symptomatic, able to ambulate but dizzy; d/w pt will plan H/ H check 4h post-transfusion then again tmrw AM to ensure stability, not yet meeting discharge criteria; plan to remove sofie in am POD 4 much better today and ready for discharge RTO 1 week Discharge Planning not meeting criteria Sylvia San MD Oct 06, 2017 08:48
[2017-10-06] MEDS ORDERED: OXYC1TAB63 PO (08:49)
[2017-10-07] MEDS ORDERED: CEPH-460 PO (14:57)
[2017-10-07] MEDS ORDERED: CLIN300C5 PO (16:19)
== END 2017-10-06 09:36 | disposition home or self-care (01) | DRG 765 ==
LOC: H2EB 19:43 → H1EA 10-02 21:41
PROVIDERS: ADMIT Obstetrics & Gynecology; ATTEND Obstetrics & Gynecology
PROC: 10D00Z1 Extraction of Products of Conception, Low, Open Approach (ICD-10-PCS; principal; 2017-10-02)
DX: O41.03X0 Oligohydramnios, third trimester, not applicable or unspecified (principal); D62 Acute posthemorrhagic anemia; O62.0 Primary inadequate contractions; O99.02 Anemia complicating childbirth; O62.1 Secondary uterine inertia; Z88.0 Allergy status to penicillin; Z3A.40 40 weeks gestation of pregnancy; Z37.0 Single live birth
CPT/HCPCS: 36430; 59025; 80307; 81001; 85007; 85025; 85027; 86850; 86900; 86901; 86920; J0131; J1100; J1756; J2370; J2405; J2590; J3010; J7050; J7120; P9016

== ENCOUNTER 2017-10-07 12:20 | Emergency (ER) | payer OTHER ==
[~2017-10-07 12:20] MED LIST changes: -CLIN300C5 PO; -HYDR-3533 PO; +OXYC1TAB63 PO; +PRENTAB7; +PYRI25TA PO; +ZANT150T2 PO
[2017-10-07 12:25] VITALS: BP 146/89; PULSE 89; RESP 16; TEMP 97.9; O2SAT 98
--- NOTE | 2017-10-07 12:47 | PD ---
HPI Chief Complaint: Skin Problem Time Seen by Provider: 12:30 Travel History International Travel<30 days: No Contact w/Intl Traveler<30days: No Traveled to known affect area: No History of Present Illness HPI This 36-year-old female is complaining of swelling and pain in her left arm. She was admitted to the hospital on October 01. She was and had a C- section. She was anemic postoperatively and was given iron infusion through an IV in the left arm. She has had pain and swelling in the left arm. She has not had fever or chills. She has no other complaints. She says her incision is doing well she is not having abdominal pain. 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 wine or beer) Tobacco Use: No Substance Use: No Allergies-Medications (Allergen,Severity, Reaction): Coded Allergies: amoxicillin (Verified Allergy, Severe, THROAT SWELLS, 10/07/17) penicillin G (Unverified Allergy, Severe, Anaphylaxis, 10/07/17) Reported Meds & Prescriptions Reported Meds & Active Scripts Active Keflex (Cephalexin) 500 Mg Capsule 500 Mg PO Q6H 7 Days Oxycodone-Acetaminophen 5-325 (Oxycodone HCl/Acetaminophen) 5 Mg-325 Mg Tablet 2 Tab PO Q4H PRN Reported Vitamin B-6 (Pyridoxine HCl (Vitamin B6)) Unknown Strength Tablet 1 Tab PO HS Zantac (Ranitidine HCl) 150 Mg Tab 150 Mg PO DAILY Vitamins Tablet (Pnv No.95/Ferrous Fum/Folic AC) 28 Mg Iron-800 Mcg Tablet Review of Systems Except as stated in HPI: all other systems reviewed are Neg General / Constitutional: No: Fever, Chills Eyes: No: Diploplia HENT: No: Lightheadedness Cardiovascular: No: Chest Pain or Discomfort, Palpitations Respiratory: No: Cough Gastrointestinal: No: Nausea, Vomiting Genitourinary: No: Urgency Skin: Positive Lumps Physical Exam Narrative GENERAL: Well-developed female SKIN: Focused skin assessment warm/dry. HEAD: Atraumatic. Normocephalic. EYES: Pupils equal and round. No scleral icterus. No injection or drainage. ENT: No nasal bleeding or discharge. Mucous membranes pink and moist. NECK: Trachea midline. No JVD. MUSCULOSKELETAL: No obvious deformities. No clubbing. No cyanosis. No edema. Antecubital fossa there is an area of erythema and swelling. There is some induration extending up the arm. NEUROLOGICAL: Awake and alert. No obvious cranial nerve deficits. Motor grossly within normal limits. Normal speech. PSYCHIATRIC: Appropriate mood and affect; insight and judgment normal. Data Data Last Documented VS Vital Signs Date Time Temp Pulse Resp B/P (MAP) Pulse Ox O2 Delivery O2 Flow Rate FiO2 10/07/17 14:34 74 18 144/83 (103) 97 Room Air 10/07/17 12:25 97.9 Orders Orders Us Arm Venous Doppler (10/07/17 12:37) [facility] Medical Decision Making Medical Screen Exam Complete: No Emergency Medical Condition: No Medical Record Reviewed: No Differential Diagnosis Differential includes local irritation, DVT Narrative Course Ultrasound was done to assess for DVT and shows thrombus in the cephalic vein Diagnosis Primary Impression: Cephalic vein thrombosis, left Juan Copeland MD Oct 07, 2017 12:47
[2017-10-07 14:34] VITALS: BP 144/83; PULSE 74; RESP 18; O2SAT 97
[2017-10-07] MEDS ORDERED: CEPH-460 PO (14:57)
--- NOTE | 2017-10-07 14:58 | RADRPT ---
EXAM DATE: 10/07/2017 2:32 PM EDT AGE/SEX: 36 years / Female INDICATIONS: Left arm redness and pain. Post intravenous blood transfusion on 10/04/17. CLINICAL DATA: This is the patient's initial encounter. Patient reports that signs and symptoms have been present for 4 - 6 days and indicates a pain score of 3/10. MEDICAL/SURGICAL HISTORY: . Left arm pain. Post . section. COMPARISON: No prior [place] exams available for comparison. FINDINGS: There is spontaneous flow documented in the brachial, basilic, axillary, and subclavian veins. The v essels are compressible and augmentation response is documented. There is thrombus within the cephali c vein in the upper arm at the IV site . CONCLUSION: 1. Thrombus within the cephalic vein. Electronically signed by: Becca Morejon MD 10/07/2017 2:57 PM EDT
--- NOTE | 2017-10-07 16:12 | PD ---
Physical Exam Narrative Patient was seen by ED physician and signed out to me. Data Data Last Documented VS Vital Signs Date Time Temp Pulse Resp B/P (MAP) Pulse Ox O2 Delivery O2 Flow Rate FiO2 10/07/17 14:34 74 18 144/83 (103) 97 Room Air 10/07/17 12:25 97.9 Orders Orders Us Arm Venous Doppler (10/07/17 12:37) Complete Blood Count With Diff (10/07/17 15:57) Basic Metabolic Panel (Bmp) (10/07/17 15:57) Prothrombin Time / Inr (Pt) (10/07/17 15:57) Act Partial Throm Time (Ptt) (10/07/17 15:57) Clindamycin (Cleocin) (10/07/17 16:15) Aspirin (Aspirin) (10/07/17 16:15) Ed Discharge Order (10/07/17 16:19) MDM Supervised Visit with ANDRE: No Differential Diagnosis Differential diagnosis including hematoma, cellulitis, superficial phlebitis. Narrative Course 36-year-old female day #6 with pain swelling left antecubital area of the left arm. Patient had IV site in the left antecubital area and was given iron infusion in addition to medications. The area is with mild redness and moderate swelling and tenderness. No induration. Mild ecchymosis noted. Doppler study left arm shows thrombus in the cephalic vein. I spoke with Dr. Jnoes, on-call for Dr. Wild, her physician. Advised aspirin and antibiotic and will see patient in the office tomorrow. Aspirin 325 mg p.o. given. Clindamycin 300 mg p.o. given. Diagnosis Primary Impression: Cephalic vein thrombosis, left Patient Instructions: General Instructions Additional Instruction: Aspirin 325 mg p.o. daily. Clindamycin as directed. Warm moist compress to the area. Follow-up with personal physician in a.m. for recheck. Med/Other Pt SpecificInfo: Prescription(s) given Scripts Clindamycin (Clindamycin) 300 Mg Cap 300 MG PO TID for Infection, #30 CAP 0 Refills Prov: Jun Nobles MD 10/07/17 Disposition: 01 DISCHARGE HOME Condition: Stable Jun Nobles MD Oct 07, 2017 16:12
[2017-10-07] MEDS ORDERED: ASPIRIN 325 MG TAB PO ONE (16:15)
[2017-10-07] MEDS ORDERED: CLINDAMYCIN 150 MG CAP PO ONE (16:15)
[2017-10-07] MEDS ORDERED: CLIN300C5 PO (16:19)
[2017-10-07 16:23] LABS: AUTOMATED NEUTROPHIL # 7.4 TH/MM3 (1.8-7.7); BASOPHIL % 0.3 % (0.0-2.0); EOSINOPHIL # 0.1 TH/MM3 (0-0.4); EOSINOPHIL % 1.3 % (0.0-4.0); HEMOGLOBIN 9.8 GM/DL (11.6-15.3); LYMPH % 16.4 % (9.0-44.0); LYMPHOCYTE # 1.7 TH/MM3 (1.0-4.8); MEAN CELL VOLUME 83.6 FL (80.0-100.0); MEAN CORPUSCULAR HEMOGLOBIN 29.1 PG (27.0-34.0); MEAN CORPUSCULAR HGB CONC 34.8 % (32.0-36.0); MONO % 9.4 % (0.0-8.0); NEUT % 72.6 % (16.0-70.0); PLATELET COUNT 227 TH/MM3 (150-450); RED BLOOD COUNT 3.36 MIL/MM3 (4.00-5.30); RED CELL DISTRIBUTION WIDTH 16.9 % (11.6-17.2); WHITE BLOOD COUNT 10.2 TH/MM3 (4.0-11.0)
[2017-10-07 16:34] LABS: BICARBONATE 25.9 MEQ/L (21.0-32.0); CALCIUM 8.2 MG/DL (8.5-10.1)
[2017-10-07 16:37] LABS: INTERNATIONAL NORMALIZED RATIO 0.9 RATIO; PROTHROMBIN TIME - PATIENT 9.4 SEC (9.8-11.6)
[2017-10-07 16:38] LABS: CREATININE 0.43 MG/DL (0.50-1.00)
== END 2017-10-07 16:26 | disposition home or self-care (01) ==
LOC: PHED 12:20
DX: I82.612 Acute embolism and thrombosis of superficial veins of left upper extremity (principal); Z88.0 Allergy status to penicillin; Z79.899 Other long term (current) drug therapy
CPT/HCPCS: 80048; 85025; 85610; 85730; 93971; 99284